=== PATIENT | female | born 1970 | race Caucasian/White ===

== ENCOUNTER 2021-08-07 04:42 | Day surgery (SDC) | payer OTHER ==
[2021-08-05 15:10] VITALS: BMI 36.3
[2021-08-07] MEDS ORDERED: ceFAZolin SODIUM 1 GM VIAL ONE (06:27)
[2021-08-07] MEDS ORDERED: CEFAZOLIN 2 GM in DEXTROSE 5%-WATER - 100 ML IVPB ONE (07:00)
[2021-08-07] MEDS ORDERED: BUPIVACAINE LIPOSOME/PF (EXPAREL) 266 MG/20 ML VIAL ONE (07:34)
[2021-08-07] MEDS ORDERED: BUPIVACAINE HCL/PF 0.5% (5MG/ML) 10 ML VIAL ONE (07:35)
[2021-08-07] MEDS ORDERED: MIDAZOLAM HCL 2 MG/2 ML SINGLE DOSE VIAL ONE ×4 (07:37→07:39)
[2021-08-07] MEDS ORDERED: HYDROmorphone HCl 2 MG/ML VIAL ONE ×2 (07:38→07:40)
[2021-08-07] MEDS ORDERED: ROCURONIUM BROMIDE 50 MG/5 ML SYRINGE ONE (07:39)
[2021-08-07] MEDS ORDERED: PROPOFOL 20 ML ONE ×2 (07:39)
[2021-08-07] MEDS ORDERED: LIDOCAINE HCL 2% (20ML MULTI-DOSE VIAL) ONE (07:54)
[2021-08-07] MEDS ORDERED: oxyCODONE HCL 5 MG TABLET PO PRN ×2 (08:05→10:53)
[2021-08-07] MEDS ORDERED: ONDANSETRON 4 MG/2 ML VIAL IVPUSH PRN ×2 (08:05→10:53)
[2021-08-07] MEDS ORDERED: HYDROmorphone HCl 2 MG/ML VIAL IVPUSH PRN (08:05)
[2021-08-07] MEDS ORDERED: LACTATED RINGERS SOLUTION 1,000 ML IV SCH (08:15)
[2021-08-07] MEDS ORDERED: ceFAZolin SODIUM 1 GM VIAL IVPB ONE (08:45)
[2021-08-07] MEDS ORDERED: ACETAMINOPHEN INJECTION 100 ML IVPB ONE (09:37)
[2021-08-07] MEDS ORDERED: MICROFIBRILLAR COLLAGEN 1 GM EACH TP ONE (10:15)
[2021-08-07] MEDS ORDERED: NEOSTIGMINE METHYLSULFATE 0.5 MG/ML - 10 ML MDV ONE (10:26)
[2021-08-07] MEDS ORDERED: GLYCOPYRROLATE 0.2 MG/1 ML VIAL ONE (10:28)
[2021-08-07] MEDS ORDERED: ACETAMINOPHEN 325 MG TABLET (FP) PO PRN (10:53)
[2021-08-07 18:10] VITALS: BP 125/83; PULSE 77; TEMP 97.6
== END 2021-08-07 18:28 | disposition home or self-care (01) ==
LOC: JASUSAT 04:42 → J3W 13:20 → JASUSAT 18:28
PROVIDERS: ATTEND Specialist
PROC: 8E0W4CZ Robotic Assisted Procedure of Trunk Region, Percutaneous Endoscopic Approach (ICD-10-PCS; 2021-08-07)
PROC: 0UBG0ZZ Excision of Vagina, Open Approach (ICD-10-PCS; 2021-08-07)
PROC: 0UT94ZZ Resection of Uterus, Percutaneous Endoscopic Approach (ICD-10-PCS; principal; 2021-08-07 08:00)
DX: R10.2 Pelvic and perineal pain (principal); D25.9 Leiomyoma of uterus, unspecified; N93.8 Other specified abnormal uterine and vaginal bleeding; N80.8 Other endometriosis; N81.5 Vaginal enterocele
CPT/HCPCS: 57061; 58552; S2900; 81025; 86850; 86900; 86901; 86922; 88304-TC; 88307-TC; 94010; 94760